=== PATIENT | female | born 1965 | race Caucasian/White ===

== ENCOUNTER 2020-12-01 18:50 | Emergency (ER) | payer OTHER, SELFPAY ==
[2020-12-01 18:51] VITALS: BP 127/89; PULSE 72; RESP 18; TEMP 36.8; O2SAT 98; BMI 28.1
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
== END 2020-12-01 20:48 | disposition home or self-care (01) ==
PROVIDERS: Emergency Provider Emergency Medicine; PCP Family Medicine
DX: S93.401A Sprain of unspecified ligament of right ankle, initial encounter (principal); M77.31 Calcaneal spur, right foot; V19.9XXA Pedal cyclist (driver) (passenger) injured in unspecified traffic accident, initial encounter; Y93.55 Activity, bike riding; Y92.9 Unspecified place or not applicable
CPT/HCPCS: 73610; 73630; 99284